=== PATIENT | female | born 1970 | race Caucasian/White ===

== ENCOUNTER → 2017-01-16 | Outpatient (CLI) | payer BC ==
--- NOTE | 2017-01-17 07:18 | XR ---
Cervical spine HISTORY: Pain neck pain 5 views of the cervical spine No significant foraminal encroachment. Prevertebral soft tissues and disc spaces are maintained. Cerv ical vertebral bodies show preserved height, alignment, bone mineralization. IMPRESSION: No significant abnormalities evident. Cervical MRI may be of benefit.
== END ==
LOC: RADXRYALE 09:36
PROVIDERS: ATTEND Family Medicine
DX: M54.2 Cervicalgia (principal)
CPT/HCPCS: 72050

== ENCOUNTER → 2017-09-12 | Outpatient (CLI) | payer BC ==
--- NOTE | 2017-09-13 14:15 | MM ---
Reason for exam: screening (asymptomatic). Last mammogram was performed 1 year and 6 months ago. Physical Findings: A clinical breast exam by your physician is recommended on an annual basis and results should be correlated with mammographic findings. MG Screening Mammo w CAD Bilateral CC and MLO view(s) were taken. Prior study comparison: March 17, 2016, bilateral MG 3d screening mammo w/cad. January 30, 2014, bilateral digital screening mammo w/CAD. The breast tissue is heterogeneously dense. This may lower the sensitivity of mammography. No significant changes when compared with prior studies. ASSESSMENT: Benign, BI-RAD 2 RECOMMENDATION: Routine screening mammogram of both breasts in 1 year.
== END | disposition home or self-care (01) ==
LOC: RADMAMWWP 09:34
PROVIDERS: ATTEND Family Medicine
DX: Z12.31 Encounter for screening mammogram for malignant neoplasm of breast (principal)

== ENCOUNTER → 2019-07-14 | Outpatient (CLI) | payer BC ==
--- NOTE | 2019-07-16 08:26 | MM ---
Reason for exam: screening (asymptomatic). Last mammogram was performed 1 year and 10 months ago. Physical Findings: A clinical breast exam by your physician is recommended on an annual basis and results should be correlated with mammographic findings. MG Screening Mammo w CAD Bilateral CC and MLO view(s) were taken. Prior study comparison: September 12, 2017, bilateral MG screening mammo w CAD. March 17, 2016, bilateral MG 3d screening mammo w/cad. The breast tissue is heterogeneously dense. This may lower the sensitivity of mammography. Questionable distortion central anterior left MLO view. ASSESSMENT: Incomplete: need additional imaging evaluation, BI-RAD 0 RECOMMENDATION: Special view mammogram of the left breast. (3D) If lesion persists on supplemental views, image directed ultrasound is recommended. [facility] will attempt to contact patient to return for supplemental views and ultrasound if indicated.
== END | disposition home or self-care (01) ==
LOC: RADMAMWWP 13:50
PROVIDERS: ATTEND Obstetrics & Gynecology
DX: Z12.31 Encounter for screening mammogram for malignant neoplasm of breast (principal)
CPT/HCPCS: 77067

== ENCOUNTER → 2019-07-24 | Outpatient (CLI) | payer BC ==
--- NOTE | 2019-07-25 09:46 | MM ---
Reason for exam: additional evaluation requested from abnormal screening. Last mammogram was performed less than 1 month ago. Physical Findings: Nurse did not find any significant physical abnormalities on exam. MG 3D Work Up W/Cad LT LM and spot compression MLO view(s) were taken of the left breast. Prior study comparison: July 14, 2019, bilateral MG screening mammo w CAD. September 12, 2017, bilateral MG screening mammo w CAD. The breast tissue is heterogeneously dense. This may lower the sensitivity of mammography. There are stable calcifications in the left breast. The previously seen abnormality resolves on additional views and appears as fibroglandular tissue compatible with summation. These results were verbally communicated with the patient and result sheet given to the patient on 07/24/19. ASSESSMENT: Benign, BI-RAD 2 RECOMMENDATION: Return to routine screening mammogram schedule for both breasts.
== END | disposition home or self-care (01) ==
LOC: RADMAMWWP 14:25
PROVIDERS: ATTEND Obstetrics & Gynecology
DX: R92.8 Other abnormal and inconclusive findings on diagnostic imaging of breast (principal)
CPT/HCPCS: 77061; 77065

== ENCOUNTER → 2020-03-19 | Outpatient (CLI) | payer BC ==
--- NOTE | 2020-03-19 15:19 | XR ---
EXAMINATION TYPE: XR nasal bone DATE OF EXAM: 03/19/2020 COMPARISON: NONE HISTORY: Nasal bone pain after injury TECHNIQUE: 4 views of the nasal bone were obtained FINDINGS: Well-corticated contour deformity of the nasal bone is seen without displacement or cortica l disruption. Nasal septum appears overall midline. Visualized paranasal sinuses appear well aerated. And bony orbits are grossly intact. IMPRESSION: Contour deformity of the distal midline nasal bone appears well corticated without lucenc y suggestive of prior fracture. No acute displaced fracture seen of the nasal bone.
== END | disposition home or self-care (01) ==
LOC: RADXRYALE 14:29
PROVIDERS: ATTEND Family Medicine
DX: M95.0 Acquired deformity of nose (principal)
CPT/HCPCS: 70160

== ENCOUNTER → 2020-08-30 | Outpatient (CLI) | payer BC ==
--- NOTE | 2020-09-01 09:58 | MM ---
Reason for exam: screening (asymptomatic). Last mammogram was performed 1 year and 1 month ago. Physical Findings: A clinical breast exam by your physician is recommended on an annual basis and results should be correlated with mammographic findings. MG 3D Screening Mammo W/Cad Bilateral CC and MLO view(s) were taken. Prior study comparison: July 24, 2019, left breast MG 3d work up w/cad LT. July 14, 2019, bilateral MG screening mammo w CAD. The breast tissue is heterogeneously dense. This may lower the sensitivity of mammography. Increasing bilateral density compatible with reported weight loss. No persisting abnormality on 3D images. No significant changes when compared with prior studies. ASSESSMENT: Benign, BI-RAD 2 RECOMMENDATION: Routine screening mammogram of both breasts in 1 year.
== END | disposition home or self-care (01) ==
LOC: RADMAMWWP 16:06
PROVIDERS: ATTEND Obstetrics & Gynecology
DX: Z12.31 Encounter for screening mammogram for malignant neoplasm of breast (principal)
CPT/HCPCS: 77063; 77067

== ENCOUNTER → 2021-12-01 | Outpatient (CLI) | payer BC ==
--- NOTE | 2021-12-02 09:17 | MM ---
Reason for exam: screening (asymptomatic). Last mammogram was performed 1 year and 3 months ago. Physical Findings: A clinical breast exam by your physician is recommended on an annual basis and results should be correlated with mammographic findings. MG 3D Screening Mammo W/Cad Bilateral CC and MLO view(s) were taken. Prior study comparison: August 30, 2020, bilateral MG 3d screening mammo w/cad. July 24, 2019, left breast MG 3d work up w/cad LT. The breast tissue is heterogeneously dense. This may lower the sensitivity of mammography. There is no discrete abnormality. No significant changes when compared with prior studies. ASSESSMENT: Negative, BI-RAD 1 RECOMMENDATION: Routine screening mammogram of both breasts in 1 year.
== END | disposition home or self-care (01) ==
LOC: RADMAMWWP 15:29
PROVIDERS: ATTEND Obstetrics & Gynecology
DX: Z12.31 Encounter for screening mammogram for malignant neoplasm of breast (principal)
CPT/HCPCS: 77063; 77067

== ENCOUNTER → 2022-04-21 | Outpatient (CLI) | payer BC ==
--- NOTE | 2022-04-21 09:22 | US ---
EXAMINATION TYPE: US abdomen complete DATE OF EXAM: 04/21/2022 COMPARISON: NONE CLINICAL HISTORY: R10.30 LOWER ABD PAIN. Pt states ABD/Pelvic pressure EXAM MEASUREMENTS: Liver Length: 13.7 cm Gallbladder Wall: 0.2 cm CBD: 0.3 cm Spleen: 7.1 cm Right Kidney: 10.2 x 4.1 x 5.7 cm Left Kidney: 9.8 x 5.2 x 4.9 cm Pancreas: wnl Liver: wnl Gallbladder: wnl Evidence for sonographic Bullard's sign: No CBD: wnl Spleen: wnl Right Kidney: wnl Left Kidney: No evidence of hydro, questionable few echogenic foci scattered within kidney, largest 5mm in size ?calculi Upper IVC: wnl Abd Aorta: wnl The liver is homogenous. The intrahepatic portion of the IVC and proximal abdominal aorta are within normal limits. There is no evidence of cholelithiasis. Common bile duct is unremarkable. The visu alized portions of the pancreas are homogenous. The spleen is unremarkable. Kidneys are symmetric a nd free of hydronephrosis. No renal lesions are seen. IMPRESSION: Nonobstructing nephrolithiasis.
--- NOTE | 2022-04-21 09:25 | US ---
EXAMINATION TYPE: US transvaginal DATE OF EXAM: 04/21/2022 COMPARISON: US 2014 CLINICAL HISTORY: R10.30 LOWER ABD PAIN. Pt states ABD/Pelvic pressure TECHNIQUE: Transvaginal (TV). Transvaginal sonographic images of the pelvis were acquired. Date of LMP: Pt states 4 months ago which has been the norm for her lately EXAM MEASUREMENTS: Uterus: 7.7 x 3.6 x 4.8 cm Endometrial Stripe: 0.4 cm Right Ovary: 2.0 x 1.2 x 1.7 cm Left Ovary: 2.0 x 1.1 x 1.3 cm 1. Uterus: Anteverted wnl 2. Endometrium: wnl 3. Right Ovary: wnl 4. Left Ovary: wnl 5. Bilateral Adnexa: wnl 6. Posterior cul-de-sac: wnl No abnormality visualized within pelvis IMPRESSION: No significant abnormality appreciated.
== END | disposition home or self-care (01) ==
LOC: RADUSWWP 08:04
PROVIDERS: ATTEND Family Medicine
DX: N20.0 Calculus of kidney (principal)
CPT/HCPCS: 76700; 76830

== ENCOUNTER → 2022-05-26 | Outpatient (CLI) | payer BC ==
--- NOTE | 2022-05-26 11:51 | XR ---
EXAMINATION TYPE: XR KUB DATE OF EXAM: 05/26/2022 COMPARISON: None HISTORY: History of stones and hematuria TECHNIQUE: Frontal abdomen FINDINGS: There is moderate fecal retention present. Psoas margins are normal. No mass effect is evid ent. No suspicious calcifications. Phleboliths within the left hemipelvis. Organomegaly is not eviden t. IMPRESSION: 1. Mild fecal retention
== END | disposition home or self-care (01) ==
LOC: RADXRMAIN 10:53
PROVIDERS: ATTEND Urology
DX: K59.00 Constipation, unspecified (principal)
CPT/HCPCS: 74018

== ENCOUNTER → 2023-01-23 | Outpatient (CLI) | payer BC ==
--- NOTE | 2023-01-23 14:22 | BD ---
EXAMINATION TYPE: Axial Bone Density DATE OF EXAM: 01/23/2023 CLINICAL HISTORY: 52 years old Female. ICD-10 CODE: N92.1 POST MENOPAUSAL Height: 64 Weight: 134 FRAX RISK QUESTIONS: Secondary Osteoporosis: no Rheumatoid Arthritis: no RISK FACTORS HISTORY OF: Family History of Osteoporosis: no Active: yes Diet low in dairy products/other sources of calcium: no Postmenopausal woman: yes, age 51 Lost more than 2 inches in height since high school: no Frequent falls: no Poor Health: no MEDICATIONS: Additional Medications: no EXAM MEASUREMENTS: Bone mineral densitometry was performed using the [employer] System. Bone mineral density as measured about the Lumbar spine is: ----- L1-L4(G/cm2): 1.038 T Score Values are as follows: ----- L1: -1.6 ----- L2: -1.6 ----- L3: -1.0 ----- L4: -0.8 ----- L1-L4: -1.2 Z Score Values are as follows: ----- L1: -0.9 ----- L2: -0.8 ----- L3: -0.2 ----- L4: 0.0 ----- L1-L4: -0.4 Bone mineral density baseline Bone mineral density about the R hip (g/cm2): 0.770 Bone mineral density about the L hip (g/cm2): 0.772 T Score values are as follows: -----R Neck: -2.2 -----L Neck: -2.3 -----R Total: -1.9 -----L Total: -1.9 Z Score values are as follows: -----R Neck: -1.2 -----L Neck: -1.3 -----R Total: -1.2 -----L Total: -1.2 Bone mineral density baseline FRAX%s: The graph provided illustrates a 7.3% chance for a major osteoporotic fx and a 1.3% chance fo r the hips probability for fx in 10 years time. IMPRESSION: Osteopenia (T Score between -2.5 and -1). There is slightly increased risk of fracture and the patient may be considered for treatment. Re-Screen 2-5 years. NOTE: T-SCORE=SD OF THE YOUNG ADULT MEAN.
--- NOTE | 2023-01-24 15:56 | MM ---
Reason for Exam: Screening (asymptomatic). Last mammogram was performed 1 year(s) and 1 month(s) ago. Patient History: Menarche at age 13. First Full-Term at age 25. Risk Values: Emma 5 year model risk: 1.2%. NCI Lifetime model risk: 9.6%. Prior Study Comparison: 07/24/2019 Left Diagnostic Mammogram, [facility]. 08/30/2020 Bilateral Screening Mammogram, [facility]. 12/01/2021 Bilateral Screening Mammogram, [facility]. Tissue Density: There are scattered fibroglandular densities. Findings: Analyzed By CAD. Pattern appears symmetrical and stable. No significant interval changes are evident No suspicious groups of microcalcifications, spiculated or lobular masses, architectural distortion or other secondary signs of malignancy are mammographically apparent. Overall Assessment: Benign, BI-RAD 2 Management: Screening Mammogram of both breasts in 1 year. A negative mammogram report should not preclude additional follow up of suspicious palpable abnormalities. Patient should continue monthly self breast exam. A clinical breast exam by your physician is recommended on an annual basis and results should be correlated with mammographic findings. Electronically signed and approved by: Luis Fernando aPt D.O. Radiologis
== END | disposition home or self-care (01) ==
LOC: RADMAMWWP 11:52
PROVIDERS: ATTEND Obstetrics & Gynecology
DX: Z12.31 Encounter for screening mammogram for malignant neoplasm of breast (principal); M85.89 Other specified disorders of bone density and structure, multiple sites; Z78.0 Asymptomatic menopausal state
CPT/HCPCS: 77063; 77067; 77080

== ENCOUNTER → 2024-07-08 | Outpatient (CLI) | payer BC ==
--- NOTE | 2024-07-09 17:18 | MM ---
Reason for Exam: Screening (asymptomatic). Last mammogram was performed 1 year(s) and 6 month(s) ago. Patient History: Menarche at age 13. First Full-Term at age 25. Postmenopausal. Risk Values: Emma 5 year model risk: 1.3%. NCI Lifetime model risk: 9.3%. Prior Study Comparison: 08/30/2020 Bilateral Screening Mammogram, [facility]. 12/01/2021 Bilateral Screening Mammogram, [facility]. 01/23/2023 Bilateral MG 3D screening mammo w/cad, [facility]. Tissue Density: The breasts are heterogeneously dense, which may obscure small masses. Findings: Analyzed By CAD. There is no suspicious group of microcalcifications or new suspicious mass in either breast. Overall Assessment: Negative, BI-RAD 1 Management: Screening Mammogram of both breasts in 1 year. . Patient should continue monthly self-breast exams. A clinical breast exam by your physician is recommended on an annual basis. This exam should not preclude additional follow-up of suspicious palpable abnormalities. Note on Emma scores and lifetime risk: 1. A Emma score greater than 3% is considered moderate risk. If this is the case, consider specialist referral to assess eligibility for a risk reducing agent. 2. If overall lifetime risk for the development of breast cancer is 20% or higher, the patient may qualify for future screening with alternating mammogram and breast MRI. Electronically signed and approved by: Eun Spencer M.D. Radiologist
== END | disposition home or self-care (01) ==
LOC: RADMAMWWP 09:52
PROVIDERS: ATTEND Family Medicine
DX: Z12.31 Encounter for screening mammogram for malignant neoplasm of breast
CPT/HCPCS: 77063; 77067

== ENCOUNTER → 2024-08-15 | Outpatient (CLI) | payer BC ==
--- NOTE | 2024-08-17 14:43 | CA ---
Transthoracic Echo Report Name: Jasmin Sesay Age: 54 Gender: F : 1970 Exam Date: 08/15/2024 16:11 Exam Location: [place] [facility] Ht (in): 65 Wt (lb): 126 Ordering Physician: Kieran Montejo DO Attending/Referring Phys: Stacy Phoenix PAC Art Psychotherapist Or Therapist Fay Coronado RDCS Procedure CPT: Indications: R55 Syncope Cardiac Hx: Technical Quality: Good Contrast 1: Total Dose (mL): Contrast 2: Total Dose (mL): MEASUREMENTS (Male / Female) Normal Values 2D ECHO LV Diastolic Diameter PLAX 3.8 cm 4.2 - 5.9 / 3.9 - 5.3 cm LV Systolic Diameter PLAX 2.5 cm IVS Diastolic Thickness 1.0 cm 0.6 - 1.0 / 0.6 - 0.9 cm LVPW Diastolic Thickness 1.3 cm 0.6 - 1.0 / 0.6 - 0.9 cm LV Relative Wall Thickness 0.6 RV Internal Dim ED PLAX 2.0 cm LV Diastolic Volume MOD BP 54.7 cm??? 67 - 155 / 56 - 104 cm??? LV Systolic Volume MOD BP 18.0 cm??? 22 - 58 / 19 - 49 cm??? LV Ejection Fraction MOD BP 67.2 % >= 55 % LV Cardiac Index MOD BP 1771.2 cm???/min???m??? LV Diastolic Volume MOD 4C 54.6 cm??? LV Systolic Volume MOD 4C 18.0 cm??? LV Ejection Fraction MOD 4C 67.0 % LV Cardiac Index MOD 4C 1764.2 cm???/min???m??? LV Diastolic Length 4C 6.8 cm LV Systolic Length 4C 5.9 cm LV Diastolic Volume MOD 2C 52.9 cm??? LV Systolic Volume MOD 2C 17.7 cm??? LV Ejection Fraction MOD 2C 66.6 % LV Cardiac Index MOD 2C 1698.4 cm???/min???m??? LV Diastolic Length 2C 6.5 cm LV Systolic Length 2C 5.8 cm LA Volume 44.2 cm??? 18 - 58 / 22 - 52 cm??? LA Volume Index 27.3 cm???/m??? 16 - 28 cm???/m??? M-MODE Aortic Root Diameter MM 2.7 cm LA Systolic Diameter MM 2.9 cm LA Ao Ratio MM 1.1 AV Cusp Separation MM 1.8 cm DOPPLER MV Area PHT 2.7 cm??? Mitral E Point Velocity 76.1 cm/s Mitral A Point Velocity 82.0 cm/s Mitral E to A Ratio 0.9 MV Deceleration Time 282.3 ms TR Peak Velocity 206.9 cm/s TR Peak Gradient 17.1 mmHg Right Ventricular Systolic Press 21.2 mmHg FINDINGS Left Ventricle Left ventricular ejection fraction is estimated at 55-60 %. Mildly increased septal wall thickness. Mildly increased posterior wall thickness. Normal left ventricular systolic function with no obvious regional wall motion abnormalities. Left ventricular cavity size normal. Right Ventricle Normal right ventricular size and function. Right ventricular systolic pressure within normal limits. Right Atrium Normal right atrial size. Left Atrium Normal left atrial size. Mitral Valve Structurally normal mitral valve. Mild mitral regurgitation. No mitral stenosis. Aortic Valve Trileaflet aortic valve. No aortic valve stenosis or regurgitation. Tricuspid Valve Structurally normal tricuspid valve. Trace tricuspid regurgitation. No tricuspid stenosis. Pulmonic Valve Structurally normal pulmonic valve. No pulmonic stenosis. Trace pulmonic regurgitation. Pericardium No pericardial or pleural effusion. Aorta Normal size aortic root and proximal ascending aorta. CONCLUSIONS LVEF 55 to 60% Mild concentric LVH No obvious regional wall motion abnormality Normal RV size systolic function Mild mitral regurgitation No pericardial effusion Previewed by: Dr Elmo Multani (Electronically Signed) Final Date: 17 August 2024 14:41
== END | disposition home or self-care (01) ==
LOC: RADECHMAIN 15:51
PROVIDERS: ATTEND Family Medicine
CPT/HCPCS: 93306